=== PATIENT | male | born 1990 ===

== ENCOUNTER 2017-04-13 02:54 | Emergency (ER) | payer SELFPAY ==
[2017-04-13] MEDS ORDERED: Sodium Chloride 0.9% 1,000 ML IV ONE ×2 (03:35→03:36)
[2017-04-13] MEDS ORDERED: Iohexol 240 (50 ml) PO ONE (03:38)
[2017-04-13] MEDS ORDERED: Iohexol 240 (50 ml) ONE ×2 (03:42→04:44)
[2017-04-13 03:58] LABS: BASO # 0.1 K/uL (0.0-0.2); BASO % 0.3 % (0.0-2.0); HEMATOCRIT 46.7 % (35.0-51.0); LYMPH # 0.4 K/uL (1.0-4.3); LYMPH % 2.6 % (20.0-40.0); MEAN CORPUSCULAR HEMOGLOBIN 28.7 pg (27.0-31.0); MEAN CORPUSCULAR HGB CONC 33.8 g/dL (33.0-37.0); MEAN PLATELET VOLUME 8.6 fL (7.2-11.7); MONO # 0.4 K/uL (0.0-0.8); MONO % 2.7 % (0.0-10.0); PLATELET COUNT 321 K/uL (130-400); RED CELL DISTRIBUTION WIDTH 14.2 % (11.5-14.5)
[2017-04-13 04:06] LABS: RBC URINE 27 /hpf (0-3); URINE BILIRUBIN NEGATIVE (NEGATIVE); URINE BLOOD 3+ (NEGATIVE); URINE COLOR Yellow (YELLOW); URINE GLUCOSE (UA) NORMAL (Normal); URINE KETONE NEGATIVE (NEGATIVE); URINE LEUKOCYTE ESTERASE NEG Leu/uL (Negative); URINE PROTEIN 1+ mg/dL (NEGATIVE); URINE UROBILINOGEN NORMAL mg/dL (0.2-1.0); WBC URINE 1 /hpf (0-5)
[2017-04-13 04:12] LABS: ALKALINE PHOSPHATASE 66 U/L (38-126); ALT/SGPT 40 U/L (21-72); AST/SGOT 31 U/L (17-59); BLOOD UREA NITROGEN 15 mg/dL (9-20); CARBON DIOXIDE 22 mmol/L (22-30); CHLORIDE 99 mmol/L (98-107); GFR AFRICAN-AMERICAN > 60; GLUCOSE,RANDOM 100 mg/dL (75-110); POTASSIUM 3.5 mmol/L (3.6-5.2); SODIUM 138 mmol/L (132-148); TOTAL PROTEIN 8.4 g/dL (6.3-8.3)
[2017-04-13 04:14] LABS: ALB/GLOB RATIO 1.3 (1.0-2.1)
--- NOTE | 2017-04-13 04:23 | C.PDOC ---
History Of Present Illness 26 year old male presents to the ER with a complaint of abdominal pain and vomiting after eating chicken wings. Denies diarrhea or fever. Chief Complaint (Nursing): GI Problem History Per: Patient History/Exam Limitations: no limitations Onset/Duration Of Symptoms: Hrs Current Symptoms Are (Timing): Still Present Context: Food Location Of Pain/Discomfort: RUQ, LUQ Radiation Of Pain To:: None Quality Of Discomfort: Unable To Describe Associated Symptoms: Vomiting. denies: Fever, Chills Exacerbating Factors: None Alleviating Factors: None Recent travel outside of the [place]: No Past Medical History Reviewed: Historical Data, Nursing Documentation, Vital Signs Vital Signs: Last Vital Signs Temp 97.7 F 04/13/17 03:09 Pulse 118 H 04/13/17 03:09 Resp 20 04/13/17 03:09 BP 89/53 L 04/13/17 03:09 Pulse Ox 97 04/13/17 04:30 - Medical History PMH: No Chronic Diseases Surgical History: No Surg Hx Family History: States: Unknown Family Hx - Social History Hx Alcohol Use: Yes Hx Substance Use: No - Immunization History Hx Tetanus Toxoid Vaccination: No Hx Influenza Vaccination: No Hx Pneumococcal Vaccination: No Review Of Systems Constitutional: Negative for: Fever, Chills Gastrointestinal: Positive for: Vomiting, Abdominal Pain. Negative for: Diarrhea Physical Exam - Physical Exam Appears: Non-toxic, Other (Moderate distress) Skin: Normal Color, Warm, Dry Head: Atraumatic, Normacephalic Eye(s): bilateral: Normal Inspection Oral Mucosa: Moist Chest: Symmetrical Cardiovascular: Rhythm Regular Respiratory: Normal Breath Sounds, No Rales, No Rhonchi, No Wheezing Gastrointestinal/Abdominal: Soft, Tenderness (Bilateral upper quadrants, more to RUQ), No Guarding, No Rebound Neurological/Psych: Oriented x3, Normal Speech, Other (No focal deficits) ED Course And Treatment - Laboratory Results Result Diagrams: 04/13/17 03:55 04/13/17 03:55 O2 Sat by Pulse Oximetry: 97 (Room air) Pulse Ox Interpretation: Normal Progress Note: CT abd/pel, blood work, and urinalysis ordered. Bentyl and IV fluids administered. Disposition - Disposition Referrals: [facility] [Outside] Disposition: AGAINST MEDICAL ADVICE Disposition Time: 06:01 Condition: STABLE Prescriptions: Ciprofloxacin [Cipro] 1 tab PO BID #14 tab Instructions: Abdominal Pain (ED), Acute Hematuria (GEN) Forms: [facility] (Italian) - POA Present On Arrival: None - Clinical Impression Clinical Impression: Abdominal pain, Hematuria - Scribe Statement The provider has reviewed the documentation as recorded by the Scribmayo Chakraborty All medical record entries made by the Scribe were at my direction and personally dictated by me. I have reviewed the chart and agree that the record accurately reflects my personal performance of the history, physical exam, medical decision making, and the department course for this patient. I have also personally directed, reviewed, and agree with the discharge instructions and disposition.
--- NOTE | 2017-04-13 04:25 | C.PDOC ---
Chief Complaint (Nursing): GI Problem Past Medical History Vital Signs: Last Vital Signs Temp 97.7 F 04/13/17 03:09 Pulse 118 H 04/13/17 03:09 Resp 20 04/13/17 03:09 BP 89/53 L 04/13/17 03:09 Pulse Ox 97 04/13/17 04:22 - Social History Hx Alcohol Use: Yes Hx Substance Use: No - Immunization History Hx Tetanus Toxoid Vaccination: No Hx Influenza Vaccination: No Hx Pneumococcal Vaccination: No ED Course And Treatment - Laboratory Results Result Diagrams: 04/13/17 03:55 04/13/17 03:55 O2 Sat by Pulse Oximetry: 97 Disposition - Disposition Disposition: AGAINST MEDICAL ADVICE Disposition Time: 04:23 Condition: STABLE Instructions: Abdominal Pain (ED) Forms: [facility] (Setswana) - POA Present On Arrival: None - Clinical Impression Clinical Impression: Abdominal pain
[2017-04-13 04:44] LABS: NEUTROPHIL 90 % (50-75); TOTAL CELLS COUNTED 100
[2017-04-13] MEDS ORDERED: Sodium Chloride 0.9% 1,000 ML ONE (04:44)
[2017-04-13] MEDS ORDERED: Iodixanol 320 MG/ML 100 ML BOTTLE IV ONE (05:04)
--- NOTE | 2017-04-13 05:44 | CT ---
EXAM: CT Abdomen and Pelvis With Intravenous Contrast CLINICAL HISTORY: 26 years old, male; Pain; Abdominal pain; Additional info: Right sided abd pain/ hematuria TECHNIQUE: Axial computed tomography images of the abdomen and pelvis with intravenous contrast. All CT scans at this facility use one or more dose reduction techniques, viz.: automated exposure control; ma/kV adjustment per patient size (including targeted exams where dose is matched to indication; i.e. head); or iterative reconstruction technique. Coronal and sagittal reformatted images were created and reviewed. CONTRAST: 100 mL of [id number] administered intravenously. COMPARISON: No relevant prior studies available. FINDINGS: Lower thorax: The bilateral lung bases are clear. ABDOMEN: Liver:The liver is enlarged and demonstrates diffuse fatty infiltration. Gallbladder and bile ducts: The gallbladder is only minimally distended, without calcified stones. No significant intra- or extrahepatic biliary ductal dilation. Pancreas: Enhances homogeneously. No ductal dilation. No discrete mass. Spleen: No acute findings. Adrenals: No acute findings. Kidneys and ureters: Intravenous contrast is identified within the collecting systems of the bilateral kidneys suggesting delayed (or prior recent) imaging. No gross hydronephrosis is identified. Delayed plane film imaging may provide additional information. PELVIS: Bladder: No acute findings. Reproductive: No acute findings. Appendix: Surgical clips are present within the cecum, suggesting prior appendectomy. ABDOMEN and PELVIS: Stomach and bowel: Dense oral contrast is identified within the stomach and proximal small bowel demonstrating streak artifact within the upper abdomen. Multiple loops of fluid-filled small and large bowel are present throughout the abdomen without significant caliber change to suggest a transition point for obstruction. Peritoneum: No significant fluid collection. No free air. Lymph nodes: No pathologically enlarged lymph nodes. Vasculature: Unremarkable. Bones: No acute fracture. IMPRESSION: Multiple loops of fluid-filled small and large bowel throughout the abdomen without significant caliber change to suggest obstruction. Intravenous contrast within the collecting systems of the bilateral kidneys. Delayed abdominal radiographs may be performed to evaluate for adequate excretion into the bladder, as this is not demonstrated on the current study.
[2017-04-13 06:15] VITALS: BP 90/60; PULSE 100; RESP 16; TEMP 98; O2SAT 100
== END 2017-04-13 06:15 | disposition left against medical advice (07) ==
LOC: C.ER 02:54
DX: R10.11 Right upper quadrant pain (principal); R31.9 Hematuria, unspecified
CPT/HCPCS: 74177; 80053; 81001; 83690; 85025; 96361; 96374; 99284; J1885; J7040; Q9966; Q9967